=== PATIENT | female | born 1945 | race Caucasian/White ===

== ENCOUNTER 2017-03-30 07:54 | Inpatient (IN) | payer MEDICARE ==
[2017-03-30] MEDS ORDERED: KETOROLAC 60 MG/2 ML VIAL IVP STA (09:05)
[2017-03-30] MEDS ORDERED: ONDANSETRON 4 MG/2 ML VIAL IVP STA (09:05)
[2017-03-30] MEDS ORDERED: SODIUM CHLORIDE 0.9% 1,000 ML IV ONE (09:05)
[2017-03-30] MEDS ORDERED: KETOROLAC 30 MG/ML VIAL ONE (09:14)
[2017-03-30] MEDS ORDERED: ONDANSETRON 4 MG/2 ML VIAL ONE (09:14)
[2017-03-30] MEDS ORDERED: SODIUM CHLORIDE FLUSH 0.9% 10 ML SYRINGE IVP ONE ×2 (09:14→14:20)
--- NOTE | 2017-03-30 09:14 | ED Physician Documentation ---
PD HPI ABD PAIN - Stated complaint Stated Complaint: ABD PX - Chief complaint Chief Complaint: Abd Pain - History obtained from History obtained from: Patient, Family - History of Present Illness Timing - onset: How many days ago (4) Timing - duration: Days (4) Timing - details: Abrupt onset, Still present Quality: Sharp, Pain Location: LLQ Radiation: Left flank Improved by: Other (nothing) Worsened by: Other (nothing) Associated symptoms: Nausea, Vomiting Similar symptoms before: Has not had sx before Recently seen: Not recently seen - Additional information Additional information: 71-year-old female developed some pain in the left lower quadrant which radiates into her left flank about 4 days ago she has had undulation of the pain and this morning the pain is intolerable. She is vomiting. She has known diverticula but no prior diverticulitis. She has had appendix and tonsils out and no other operations. She had a pelvic ultrasound done a [facility] last year in [place]. She had fibroid uterus then. Review of Systems Constitutional: denies: Fever, Chills, Myalgias, Fatigue Nose: denies: Congestion Throat: denies: Sore throat Respiratory: denies: Cough GI: reports: Abdominal Pain, Nausea, Vomiting. denies: Constipation, Diarrhea : reports: Frequency. denies: Dysuria Skin: denies: Rash Musculoskeletal: reports: Back pain. denies: Neck pain, Extremity pain PD PAST MEDICAL HISTORY - Past Medical History Past Medical History: Yes Cardiovascular: Hypertension GI: Other Other Past Medical History: diverticulosis - Past Surgical History General: Appendectomy HEENT: Tonsil/Adenoidectomy - Present Medications Home Medications: Ambulatory Orders Medication Instructions Recorded Confirmed Hydrochlorothiazide 25 mg PO DAILY 03/30/17 03/31/17 Losartan [Cozaar] 25 mg PO DAILY 03/30/17 03/31/17 Naproxen Sodium 220 mg PO BID PRN 03/30/17 03/30/17 - Allergies Allergies/Adverse Reactions: Allergies Allergy/AdvReac Type Severity Reaction Status Date / Time ciprofloxacin [From Cipro] Allergy Unknown Verified 03/30/17 08:13 ciprofloxacin HCl * Allergy Unknown Verified 03/30/17 08:13 [From Cipro] eucalyptus Allergy Rash Verified 03/30/17 08:13 iodine Allergy Unknown Verified 03/30/17 08:13 menthol Allergy Rash Verified 03/30/17 08:13 lisinopril AdvReac Anxiety Verified 03/31/17 11:31 - Social History Does the pt smoke?: No Smoking Status: Never smoker Does the pt drink ETOH?: Yes ETOH Use: Wine Does the pt have substance abuse?: No PD ED PE NORMAL - Vitals Vital signs reviewed: Yes (hypertensive ) - General General: Well developed/nourished, Other (71-year-old female who appears uncomfortable with increased cranial nerves III tone.) - HEENT HEENT: Atraumatic, PERRL - Neck Neck: Supple, no meningeal sign, No bony TTP - Cardiac Cardiac: RRR, No murmur - Respiratory Respiratory: No respiratory distress, Clear bilaterally - Abdomen Abdomen: Normal bowel sounds, Soft, Non tender, Non distended, No organomegaly - Back Back: No CVA TTP, No spinal TTP - Derm Derm: Normal color, Warm and dry, No rash - Extremities Extremities: No deformity, No edema - Neuro Neuro: No motor deficit, No sensory deficit - Psych Psych: Normal mood, Normal affect Results - Vitals Vitals: Vital Signs - 24 hr 03/30/17 03/30/17 17:42 18:30 Heart Rate 88 78 Respiratory 16 16 Rate Blood Pressure 156/72 H 150/82 H Oxygen O2 Source Room air - Labs Labs: Laboratory Tests 03/30/17 03/30/17 03/30/17 08:51 08:51 08:51 WBC 7.6 RBC 4.69 Hgb 14.2 Hct 41.3 MCV 88.2 MCH 30.2 MCHC 34.3 RDW 13.9 Plt Count 272 MPV 6.9 L Neut # 6.8 H Lymph # 0.5 L Antelope # 0.3 Eos # 0.0 Baso # 0.0 Absolute Nucleated RBC 0.01 Nucleated RBCs 0.1 Sodium 135 Potassium 2.8 L Chloride 96 L Carbon Dioxide 28 Anion Gap 11.0 BUN 13 Creatinine 0.7 Estimated GFR (MDRD) 82 L Glucose 136 H Calcium 9.2 Total Bilirubin 0.7 AST 22 ALT 18 Alkaline Phosphatase 51 Troponin I < 0.04 Total Protein 7.1 Albumin 4.5 Globulin 2.6 Albumin/Globulin Ratio 1.7 Lipase 29 Urine Color Urine Clarity Urine pH Ur Specific Tilly Urine Protein Urine Glucose (UA) Urine Ketones Urine Occult Blood Urine Nitrite Urine Bilirubin Urine Urobilinogen Ur Leukocyte Esterase Ur Microscopic Review Urine Culture Comments 03/30/17 09:45 WBC RBC Hgb Hct MCV MCH MCHC RDW Plt Count MPV Neut # Lymph # Antelope # Eos # Baso # Absolute Nucleated RBC Nucleated RBCs Sodium Potassium Chloride Carbon Dioxide Anion Gap BUN Creatinine Estimated GFR (MDRD) Glucose Calcium Total Bilirubin AST ALT Alkaline Phosphatase Troponin I Total Protein Albumin Globulin Albumin/Globulin Ratio Lipase Urine Color YELLOW Urine Clarity CLEAR Urine pH 7.0 Ur Specific Tilly 1.015 Urine Protein NEGATIVE Urine Glucose (UA) NEGATIVE Urine Ketones 15 H Urine Occult Blood TRACE-INTA Urine Nitrite NEGATIVE Urine Bilirubin NEGATIVE Urine Urobilinogen 0.2 (NORMAL) Ur Leukocyte Esterase NEGATIVE Ur Microscopic Review NOT INDICATED Urine Culture Comments NOT INDICATED - Rads (name of study) CT abdomen and pelvis without Radiology: Prelim report reviewed (Impression: No urinary tract stones or obstruction. 10 cm cystic lesion abutting proximal descending colon. Question enteric duplication cyst. Lympho-angioma, cystic mesothelioma and sarcoma are not excluded. Recommend surgical consult. Diverticulosis without evidence of diverticulitis. Enlarged fibroid uterus. Largest fibroid measuring 12 cm in size.), EMP read indepedently, See rad report Procedures - Bedside sono Bedside sono by EMP: With use of bedside ultrasound the left kidney is imaged it is sonographically nontender and there is minimal hydronephrosis. - IVC sono (time) 0914 Bedside IVC sono: IVC measures (cm) (1.08), Dehydration PD MEDICAL DECISION MAKING - ED course Complexity details: reviewed results, re-evaluated patient, considered differential, d/w patient, d/w family ED course: 71-year-old female with acute left lower quadrant abdominal pain does not have much change her pain with palpation or movement. Her description of pain is consistent with renal lithiasis. Ultrasound of the kidney on the left side of the bedside demonstrates no evidence of sonographic tenderness there is minimal evidence of hydronephrosis. CT scan of the area demonstrates a 10 cm cystic lesion abutting the colon. This does appear to be the most consistent structure to account for the patient's pain. She has improvement in her pain with use of Dilaudid and not with the use of Toradol. The surgeon is consulted in the case. Departure - Departure Disposition: [facility] DC/Xfer Clinical Impression: Enteric duplication cyst Abdominal pain Qualifiers: Abdominal location: left lower quadrant Qualified Code(s): R10.32 - Left lower quadrant pain Fibroid uterus Qualifiers: Uterine leiomyoma location: unspecified location Qualified Code(s): D25.9 - Leiomyoma of uterus, unspecified Condition: Stable Discharge Date/Time: 03/30/17 20:01
[2017-03-30 09:33] LABS: BASOPHILS % (AUTO) 0.3 %; HCT - HEMATOCRIT 41.3 % (37.0-47.0); HGB - HEMOGLOBIN 14.2 g/dL (12.0-16.0); LYMPHOCYTES # (AUTO) 0.5 10^3/uL (1.5-3.5); LYMPHOCYTES % (AUTO) 6.5 %; MEAN CORPUSCULAR HEMOGLOBIN 30.2 pg (27.0-31.0); MEAN CORPUSCULAR HGB CONC 34.3 g/dL (32.0-36.0); MEAN CORPUSCULAR VOLUME 88.2 fL (81.0-99.0); MEAN PLATELET VOLUME 6.9 fL (7.9-10.8); MONOCYTES # (AUTO) 0.3 10^3/uL (0.0-1.0); MONOCYTES % (AUTO) 3.5 %; NEUTROPHILS # (AUTO) 6.8 10^3/uL (1.5-6.6); NEUTROPHILS % (AUTO) 89.7 %; NUCLEATED RED BLOOD CELLS AUTO 0.1 /100WBC; RED BLOOD COUNT 4.69 10^6/uL (4.20-5.40); RED CELL DISTRIBUTION WIDTH 13.9 % (12.0-15.0); UNCORRECTED WHITE BLOOD COUNT 7.6 x10^3/uL; WHITE BLOOD COUNT 7.6 x10^3/uL (4.8-10.8)
[2017-03-30] MEDS ORDERED: HYDROmorphone 1 MG/ML CARPUJECT IVP STA ×2 (09:42→14:14)
[2017-03-30 09:50] LABS: ALBUMIN/GLOBULIN RATIO 1.7 (1.0-2.2); BILIRUBIN,TOTAL 0.7 mg/dL (0.2-1.0); CALCIUM 9.2 mg/dL (8.5-10.3); CREATININE 0.7 mg/dL (0.4-1.0); POTASSIUM 2.8 mmol/L (3.5-5.0); TOTAL PROTEIN 7.1 g/dL (6.7-8.2)
[2017-03-30] MEDS ORDERED: HYDROmorphone 1 MG/ML CARPUJECT ONE ×2 (09:51→14:20)
[2017-03-30] MEDS ORDERED: POTASSIUM BICARB 25 MEQ TABLET PO STA (10:08)
[2017-03-30] MEDS ORDERED: POTASSIUM BICARB 25 MEQ TABLET PO ONE (10:19)
[2017-03-30 11:23] LABS: BILIRUBIN,URINE NEGATIVE (NEGATIVE)
[2017-03-30 11:28] LABS: UA CHARGE (STRIP ONLY) YES; UR CULTURE IF IND NOT INDICATED
--- NOTE | 2017-03-30 12:25 | CT Preliminary Report ---
Exam: CT Abdomen/Pelvis W/O IMPRESSION: No urinary tract stones or obstruction. 10 cm cystic lesion abutting proximal descending colon. Question enteric duplication cyst. Lymphangio ma, cystic mesothelioma and sarcoma are not excluded. Recommend surgical consult. Diverticulosis without evidence for diverticulitis. Enlarged fibroid uterus. Largest fibroid measuring 12 cm in size. [facility] SITE ID: [id number]
--- NOTE | 2017-03-30 13:01 | CT Report ---
EXAM: CT ABDOMEN AND PELVIS (CT KUB) EXAM DATE: 03/30/2017 10:13 AM. CLINICAL HISTORY: Left flank pain. COMPARISONS: None. TECHNIQUE: Routine axial helical CT imaging was performed through the abdomen and pelvis without IV c ontrast. Reconstructions: Coronal and sagittal. In accordance with CT protocol optimization, one or more of the following dose reduction techniques w ere utilized for this exam: automated exposure control, adjustment of mA and/or KV based on patient s ize, or use of iterative reconstructive technique. FINDINGS: Lung Bases: Probable right lower parapelvic cyst. No hydronephrosis or stone. Right Kidney/Ureter: No stones, hydronephrosis, or hydroureter. No perinephric fat stranding. Left Kidney/Ureter: Probable left lower cortical and parapelvic renal cysts. No hydronephrosis or per inephric edema. Other Solid Organs: Mild bilateral adrenal gland thickening, probable hyperplasia. Medial left adrena l limb has attenuation 6HU, compatible with adenoma. Spleen is not enlarged. Liver is unremarkable in noncontrast imaging. Gallbladder/Bile Ducts: Unremarkable. Peritoneal Cavity: Small fat-containing umbilical hernia. Diverticulosis without focal inflammation. No dilated bowel. There is a prominent thin-walled simple-appearing cystic lesion abutting the proximal sigmoid colon. Lesion measures 10 x 5.6 x 7.8 cm, 233 mL and has water density. Cystic lesion contains a tiny station air traffic control specialist ior calcification. Pelvic Organs: Uterus is enlarged by densely calcified fibroids. A fundal fibroid measures 12.3 cm in size. Bladder is only partially distended and appears grossly unremarkable. Vasculature: Unremarkable. Other: Lower lumbar spine degenerative changes. Effacement of ventral thecal sac at the L3-L4 and L4- L5 levels due to broad-based disk bulges. IMPRESSION: 1. No urinary tract stones or obstruction. 2. A Large, 10 cm cystic lesion abutting proximal descending colon. Question enteric duplication cyst . Lymphangioma, cystic mesothelioma, and sarcoma are not excluded. Recommend surgical consult. 3. Diverticulosis without evidence for diverticulitis. 4. Enlarged fibroid uterus. Largest fibroid measuring approximately 12 cm in size. [facility] Referring Provider Line: [phone] SITE ID: [id number]
[2017-03-30] MEDS ORDERED: ACETAMINOPHEN 325 MG TABLET PO PRN (19:17)
[2017-03-30] MEDS ORDERED: SODIUM CHLORIDE FLUSH 0.9% 10 ML SYRINGE IVP PRN (19:17)
[2017-03-30] MEDS ORDERED: ONDANSETRON 4 MG/2 ML VIAL IVP PRN (19:17)
[2017-03-30] MEDS ORDERED: ZOLPIDEM 5 MG TABLET PO PRN (19:17)
[2017-03-30] MEDS: HYDROmorphone 1 MG/ML CARPUJECT IVP PRN (20:48)
[2017-03-30] MEDS: D5.45NS W/20 MEQ KCL 1,000 ML IV SCH (20:50)
[2017-03-30] MEDS: SODIUM CHLORIDE FLUSH 0.9% 10 ML SYRINGE IVP SCH (22:13)
[2017-03-30] MEDS: DOCUSATE SODIUM 100 MG CAPSULE PO SCH (22:32)
[2017-03-31] MEDS: D5.45NS W/20 MEQ KCL 1,000 ML IV SCH (00:51)
--- NOTE | 2017-03-31 04:45 | CONSULTATION NOTE ---
DATE OF CONSULTATION: 03/30/2017 00:00:00 IDENTIFICATION: A 71-year-old G4, P3-0-1-3. HISTORY OF PRESENT ILLNESS: I was contacted by Dr. Sarthak Anaya to see the patient. She had presented to [facility] with complaints of left flank pain. Per Dr. Christie's report, she had left lower quadrant pain with radiation to her left flank that began about 4 days ago. However, this pain has severely worsened and she describes this pain as worse than having her child who was delivered breech. She is in so much pain that she is vomiting. She denies any fevers or chills. A 10 cyst adjacent to the sigmoid was seen and attributed to her pain. Dr. Anaya consulted me given an incidental finding of an enlarged leiomyomatous uterus. The patient states that she was told in the distant past that she had a fibroid uterus, but it would shrink so that she would not have to worry about it in the future. PAST MEDICAL HISTORY 1. Hypertension. 2. Diverticulosis. PAST SURGICAL HISTORY 1. Appendectomy at age 10. 2. Tonsillectomy at age 32. 3. Immediate tubal sterilization with the last child. ALLERGIES 1. CIPROFLOXACIN, WHICH SHE HAS TENDINITIS. 2. EUCALYPTUS. 3. LISINOPRIL. 4. IODINE. MEDICATIONS 1. Losartan 50 mg 1 tab p.o. daily. 2. Hydrochlorothiazide 25 mg 1 tab p.o. daily. SOCIAL HISTORY: She denies any tobacco or illicit drug use. She does have occasional wine at night. The patient is originally from [place] [place] where she worked as a [employer]. 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 Her is [place] and his name is Vic. The patient states that her 3 children are doing quite well. PAST OBSTETRICAL HISTORY: Three term vaginal deliveries with one being breech, one miscarriage. PAST GYNECOLOGIC HISTORY: She states that she has had normal Pap smears and denies any history of colposcopy, LEEP, cold knife cone or cryotherapy. Since she has gone through menopause, she denies any postmenopausal bleeding. She was able to show me on her cell phone her most recent pap smear from [facility]. 04/2001 pap smear was negative. FAMILY HISTORY: She denies any history of female cancer, specifically for breast , ovaries or uterus. REVIEW OF SYSTEMS: Negative unless otherwise stated. OBJECTIVE VITAL SIGNS: Temperature is 97.5, blood pressure 156/72. GENERAL: The patient is a well-developed, well-nourished [place] female in no apparent distress. She is alert and oriented x3. She is very pleasant and intelligent and easy to speak to. She does have a slight [place] accent. HEENT: Within normal limits. ABDOMEN: Soft. No peritoneal signs. Fundal height measures approximately 18 weeks' equivocal gestational age. LABORATORY DATA: White count of 7.6, hemoglobin 14.2, hematocrit 41.3, platelets 272. Sodium 135, potassium 2.8, chloride 96, BUN 13, creatinine 0.7, glucose 136, AST 22, AST 18. Urinalysis indicates that she has ketonuria. CT of the abdomen and pelvis revealed a small fat containing umbilical hernia, diverticulosis without focal inflammation, no dilated bowel. There is a prominent thin-walled simple appearing cystic lesion abutting the proximal sigmoid colon. The lesion measures 10 x 5.6 x 7.8 cm, 233 mL, and has water density. Cystic lesion contains a tiny posterior calcification. Pelvic organs, uterus has enlarged densely calcified fibroids. Fundal fibroid measures 12.3 cm in size. The bladder is only partially distended and appears grossly unremarkable. When I looked at the CT report, the largest dimensions were approximately 13 x 10 x 13 cm, the entirety of the uterus. ASSESSMENT 1. A 71-year-old G4, P3-0-1-3. 2. Leiomyomatous uterus. 3. Left abdominal pain with radiation to the left flank. PLAN: I have spoken to Dr. Anaya who would like to do surgery on the patient. I am in agreement that it is in her best interest that we proceed to a total abdominal hysterectomy with bilateral salpingo-oophorectomy. She eventually will need a hysterectomy since it is causing a mass affect by making voiding difficult. Also, I worry that the fibroids will start to necrose causing further pain. Finally by proceeding to a hysterectomy, excision of her parasigmoid cyst will be much easier. I discussed with the patient the risks, benefits, alternatives, indications and expectations of surgery. Included in this discussion, but not limited to the risks of infection, hemorrhage, and damage to surrounding organs. With respect to surrounding organs, this may be an inadvertent laceration, cauterization or ligation of adjacent ureters, bladder or bowel. Furthermore, with the surgery, she will not be able to have any children in the future. All of the patient's questions were answered to her satisfaction and she verbalized her desire to proceed with surgery. I have explained to her that given the dimensions of her uterus, that we would proceed with a low vertical incision. The patient's questions were answered to her satisfaction. She verbalized her desire to proceed with surgery. I will consent the patient for a total abdominal hysterectomy and bilateral salpingo- oophorectomy. JOB #: [id number] EXT JOB #:[id number] ARON
[2017-03-31] MEDS: POLYETHYLENE GLYCOL 3350 17 GM PACKET PO SCH (07:47)
[2017-03-31] MEDS: SODIUM CHLORIDE FLUSH 0.9% 10 ML SYRINGE IVP SCH ×3 (07:47→23:29)
[2017-03-31] MEDS: HYDROmorphone 1 MG/ML CARPUJECT IVP PRN ×3 (08:05→15:55)
--- NOTE | 2017-03-31 09:01 | PROVIDER PROGRESS NOTE ---
Subjective - Prog Note Date Prog Note Date: 03/31/17 Prog Note Time: 08:59 - Subjective Pt reports feeling: Improved Subjective: Patient lying in bed, closing her eyes. Trying to get sleep. States staff has kept her pain at a constant controlled level. Was able to sleep last night. Frustrated that she hadn't gotten her fibroid taken care of 20 years ago. OK with surgery about 12:00 since it gives Vic time to arrange things before he comes to the hospital. Objective - Vital Signs/Intake & Output Reviewed Vital Signs: Yes Vital Signs: Vital Signs x48h Temp Pulse Resp BP Pulse Ox 03/31/17 08:13 98.0 F 76 16 129/68 95 - Objective General Appearance: positive: No acute distress Neurologic/Psychiatric: positive: Oriented x3 - Lab Results Fish Bones: 03/30/17 08:51 03/30/17 08:51 Assessment/Plan - Problem List (1) Fibroid uterus Impression: 71 yo with a 18 week equivocal gestational age leiomyomatamous uterus Abdominal pain Plan to proceed to SAGAR/BSO this PM. Dr. Anaya likely to remove intestinal cyst with repair of umbilical hernia Qualifiers: Uterine leiomyoma location: unspecified location Qualified Code(s): D25.9 - Leiomyoma of uterus, unspecified
[2017-03-31] MEDS: DOCUSATE SODIUM 100 MG CAPSULE PO SCH ×2 (09:27→23:28)
[2017-03-31] MEDS: hydroCHLOROthiazide 25 MG TABLET PO SCH (11:04)
[2017-03-31] MEDS: LOSARTAN 50 MG TABLET PO SCH (11:04)
[2017-03-31] MEDS ORDERED: ceFAZolin 2 GM/50 ML 50 ML IV SCH (12:00)
[2017-03-31] MEDS ORDERED: ceFAZolin 2 GM/50 ML 2 GM/50 ML BAG IV ONE (12:29)
[2017-03-31 12:55] LABS: CALCIUM 8.7 mg/dL (8.5-10.3); CREATININE 0.6 mg/dL (0.4-1.0); POTASSIUM 3.1 mmol/L (3.5-5.0)
[2017-03-31] MEDS ORDERED: POTASSIUM CHLOR 10 MEQ/100 ML 10 MEQ/100 ML BAG IV ONE (14:26)
[2017-03-31] MEDS ORDERED: fent/BUPIV 2 MCG/0.125% 250 ML EP ONE (15:08)
[2017-03-31] MEDS ORDERED: LACTATED RINGERS 1,000 ML IV ONE ×3 (17:25→20:05)
[2017-03-31] MEDS ORDERED: ceFAZolin 1 GM VIAL IV ONE (18:17)
[2017-03-31] MEDS ORDERED: MIDAZOLAM 2 MG/2 ML VIAL IVP ONE (18:17)
[2017-03-31] MEDS ORDERED: fentaNYL 100 MCG/2 ML VIAL IVP ONE (18:17)
[2017-03-31] MEDS ORDERED: LIDOCAINE-MPF 2% 5 ML VIAL IM ONE (18:17)
[2017-03-31] MEDS ORDERED: ACETAMINOPHEN 1,000 MG/100 ML 100 ML IV ONE (18:17)
[2017-03-31] MEDS ORDERED: GLYCOPYRROLATE 1 MG/5 ML VIAL IVP ONE (18:17)
[2017-03-31] MEDS ORDERED: ONDANSETRON 4 MG/2 ML VIAL IVP ONE (18:17)
[2017-03-31] MEDS ORDERED: ROCURONIUM 50 MG/5 ML VIAL IVP ONE (18:17)
[2017-03-31] MEDS ORDERED: NEOSTIGMINE 1 MG/1 ML 10 ML MDV IVP ONE (18:17)
[2017-03-31] MEDS ORDERED: DEXAMETHASONE 4 MG/ML VIAL IVP ONE (18:17)
[2017-03-31] MEDS ORDERED: PROPOFOL 200 MG/20 ML VIAL IVP ONE (18:17)
[2017-03-31] MEDS ORDERED: ePHEDrine 50 MG/ML VIAL IVP ONE (18:17)
[2017-03-31] MEDS ORDERED: BUPIVACAINE 0.25% PF 30 ML VIAL SUBQ ONE (18:17)
[2017-03-31] MEDS ORDERED: ONDANSETRON 4 MG/2 ML VIAL IVP PRN (19:59)
[2017-03-31] MEDS ORDERED: fent/BUPIV 2 MCG/0.125% 250 ML EP PRN (19:59)
[2017-03-31] MEDS ORDERED: diphenhydrAMINE INJ 50 MG/ML VIAL IVP PRN (19:59)
[2017-03-31] MEDS ORDERED: NALBUPHINE 20 MG/ML AMP IVP PRN (19:59)
--- NOTE | 2017-03-31 20:09 | OPERATIVE REPORT ---
Operative Report - General Admit Date: 03/30/17 - Other Other Information/Narrative: Date of Operation: 03/31/2017 Surgeon: Romy OSUNAOG Review Nurse: Sarthak Anaya MD [facility] Facilities Maintenance Engineer: Diana Martinez CRNA Anesthesia: 1. Epidural 2. GET Pre-op Dx: 1. 71 yo 2. Leiomyomatamous uterus 3. Intestinal cyst causing abdominal pain 4. Umbilical hernia Post-op Dx: 1. 71 yo 2. Leiomyomatamous uterus 3. Torsed left adnexa causing abdominal pain 4. Incisional hernia Procedure: 1. Exploratory laparotomy 2. Total abdominal hysterectomy 3. Bilateral salpingo-oophorectomy 4. Incisional herniorraphy (by Dr. Anaya) Findings: 1. Leiomyomatamous uterus 2. Enlarged, hemorrhagic, torsed left adnexa with 2 revolutions 3. Normal right adnexa 4. Incisional hernia Specimens: 1. Pelvic washings 2. Uterus 3. Bilateral adnexae Drains: 1. Adams catheter to gravity 2. Prevena wound vac EBL: 100 mL Complications: None Dictation #: [id number]
[2017-03-31] MEDS ORDERED: SIMETHICONE CHEW 80 MG TABLET PO SCH ×2 (22:00)
[2017-03-31] MEDS: ACETAMINOPHEN 500 MG TABLET PO SCH (23:28)
[2017-03-31] MEDS: CELECOXIB 100 MG CAPSULE PO SCH (23:28)
[2017-03-31] MEDS: LACTATED RINGERS 1,000 ML IV SCH (23:29)
[2017-03-31] MEDS: oxyCODONE 5 MG TABLET PO SCH (23:29)
[2017-03-31] MEDS ORDERED: PHENOL THROAT SPRAY 177 ML MM PRN (23:33)
--- NOTE | 2017-03-31 23:56 | OPERATIVE REPORT ---
Operative Report - General Admit Date: 03/30/17 Procedure Date: 03/31/17 Planned Procedure: Exploratory laparotomy, possible cystectomy, possible bowel resection Pre-Op Diagnosis: Large LEFT cystic abdominal structure causing pain, incisional hernia Procedure Performed: Incisional herniorrhaphy Post Op Diagnosis: LEFT ovarian torsion, LARGE fibroid uterus, incisional hernia - Procedure Note Primary Surgeon: Sarthak Anaya MD Secondary Surgeon: Romy Rosen DO Anesthesia Provider: Diana Martinez Anesthesia Technique: General ET tube IV Fluids (mL): 1,900 Estimated Blood Loss (mL): 100 Urine Output (mL): 150 Complications: None. - Other Other Information/Narrative: OPERATIVE DESCRIPTION/REPORT: After verbal and written informed consent was obtained detailing the risks of infection, bleeding requiring transfusion with its risks, and , as well as the possibility of a colostomy, and after I met with the patient confirming the surgery, the patient was brought to the operative suite and placed supine on the operating table. Great care was taken to avoid pressure points to prevent pressure necrosis or nerve injury. Monitoring devices were applied along with TEDs and pneumatic compressive stockings (to prevent DVT). The patient received preoperative antibiotics for surgical prophylaxis. Diana Martinez sedated and anethetized the patient for the entire procedure. The patient was prepped and draped in the usual sterile manner. A "time in" then confirmed that the paitient was identified with 3 identifiers (name, birthdate and medical record number), the history and physical was in the chart, the signed consent confirming the procedure was in the chart, the patient was in the correct position, the aforementioned prophylactic measures were in place or given, we had the correct personnel and equipment to complete the procedure and that anesthesia, surgery and nursing were given an opportunity to express any concerns. With the agreement of everyone in the room, we proceeded with the operation. A midline incision was made infraumbilically and taken down to the fascia. The incision extended from the umbilicus to above the pubic tubercle. Once this was taken down to the fascia, the fascia and peritoneum were opened without incident or difficulty. The incisional hernia was opened during the entry into the abdomen. Examination of the abdomen revealed that the cystic mass seen on CT scan was a LEFT ovarian torsion. Additionally, we confirmed that the large fibroid uterus was in fact a very large fibroid uterus. At this point, Dr. Rosen took the lead in the operation and performed the bilateral salpingo- oophorectomy and hysterectomy. This has been or will be reported separately by her. For this portion of the operation I was the executive sales assistant. Once this was completed I examined the abdomen for any other pathology and noted that the sigmoid colon was markedly redundant. Additionally the stomach, liver and gallbladder were all palpably normal. The spleen was normal. No pathology was noted in the large or small bowel although we did not run the bowel. Satisfied that there was no other pathology to be found and confirming that there was no bleeding from the resection performed by Dr. Rosen I closed the fascia using a 0 looped PDS in a running fashion. The fascial closure was started superiorly and inferiorly and run to meet in the middle. In so doing I repaired the incisional hernia. The subcutaneous tissues were copiously irrigated using warm sterile saline and meticulous hemostasis was obtained using Bovie electrocautery. The skin was approximated by Dr. Rosen. At this point a time out was performed that confirmed that all the counts were correct, the procedure that was performed, the blood loss, the urine output, the IV fluids administered, and the patients condition. A dressing was placed on the wound. Having tolerated the procedure well, the patient was subsequently extubated and taken to recovery room in good and stable condition.
[2017-04-01] MEDS: oxyCODONE 5 MG TABLET PO SCH ×3 (00:24→10:40)
--- NOTE | 2017-04-01 01:37 | CONSULTATION NOTE ---
DATE OF CONSULTATION: 04/01/2017 00:00:00 REQUESTING PROVIDER: HISTORY OF PRESENT ILLNESS: I am called in consultation to evaluate this exceedingly pleasant harris [age]-year-old female for abrupt onset of left-sided abdominal pain associated with some nausea and vomit ing. As already stated this pleasant 71-year-old female had the abrupt onset of left mid to upper quadrant abdominal pain radiating through to her flank, which was associated with some nausea and vomiting. I t worsened over the past 4 days to the point where the pain was intolerable and she had come into the emergency department. Notably, she has had known colonic diverticulosis but no diverticulitis. She h as had her appendix removed. She is known to have a large fibroid uterus. She denies any other sympto ms with this. PAST MEDICAL AND SURGICAL HISTORY: 1. Hypertension. 2. Sigmoid diverticulosis. 3. Appendectomy. 4. Tonsil and adenoidectomy. MEDICATIONS: 1. Hydrochlorothiazide 25 mg p.o. daily. 2. Cozaar 25 mg p.o. daily. 3. Naproxen sodium 220 mg p.o. b.i.d. as needed. ALLERGIES: 1. CIPROFLOXACIN. 2. EUCALYPTUS. 3. IODINE. 4. MENTHOL. 5. LISINOPRIL. SOCIAL HISTORY: Tobacco never. Occasional wine. Recreational drugs: None. FAMILY HISTORY: Family history is not reviewed as it is not pertinent for this disease process. REVIEW OF SYSTEMS: GENERAL: She has had no weight loss, fever or chills. HEENT: She denies any change in her vision or hearing. NECK: She denies any difficulty swallowing or speaking. CARDIAC: She denies chest pain or pressure. RESPIRATORY: She denies shortness of breath or productive cough. GASTROINTESTINAL: See above. GENITOURINARY: She denies dysuria. MUSCULOSKELETAL: She does have some generalized aches and pains, but nothing that keeps her from doin g what she wishes to do. PHYSICAL EXAMINATION: GENERAL: This is a 71-year-old female who appears her stated age. She is well-developed and well-nourished and is in no acute distress. She is alert and oriented to person, place and time. His mood and affect are appropriate. She is evaluated in room 8 at [facility] Emergency Department. VITAL SIGNS: Please refer to nurse's note. HEENT: She is normocephalic, atraumatic. Sclerae are noninjected, nonicteric. Her mucous membranes ar e pink and moist. NECK: Her neck is supple without mass or bruits. HEART: Her heart is regular rate and rhythm without rub, murmur, or gallop. LUNGS: Her lungs are clear to auscultation bilaterally. ABDOMEN: She has normal bowel sounds. She is tender in the left upper quadrant, but I am unable to pa lpate a mass. She has no peritoneal findings. The uterus itself is clearly palpable. This was noted i n the lower pelvis. RECTAL: Deferred. GENITOURINARY: Deferred. EXTREMITIES: Show no clubbing, cyanosis, or edema. GAIT: Gait was not evaluated. PSYCHIATRIC: She is alert and oriented to person, place and time. Her mood and affect appear appropri ate. She asks questions easily and well. Abnormalities on her chemistry include a potassium of 2.8, chloride of 96, GFR of 82, glucose of 136. Abnormalities on her urinalysis include urine ketones of 15. Abnormalities on her CBC included an MP V of 6.9, neutrophils 6.8, and lymphocytes 0.5. The abdominopelvic CT read by Dr. Bobo Rhodes, the impression is no urinary tract stones or obstruct ion, a large 10 cm cystic lesion abutting the proximal descending colon, question enteric duplication cyst, lymphangioma, cystic mesothelioma and sarcoma not excluded. Recommend surgical consult. Divert iculosis without evidence of diverticulitis. Enlarged fibroid uterus, largest fibroid measuring appro ximately 12 cm in size. ASSESSMENT: A 71-year-old female with abnormal CT scan leading to abdominal pain and nausea, and vomi ting. PLAN: Exploratory laparotomy with possible cystectomy or possible bowel resection. The indications, p rocedure, alternatives and possible complications including but not limited to infection, bleeding wi th all its risks including transfusion, and were fully explained to the patient and all questio ns were answered. Verbal and written consent was obtained. The patient will receive preoperative anti biotics for prophylaxis against surgical infection. The patient has been instructed to let us know if there is any way we can make her stay here at [facility] more comfortable, to ple ase let us know. All in all approximately 30 minutes of [id number] time was spent with the patient. JOB #: [id number] EXT JOB #:[id number]
--- NOTE | 2017-04-01 03:45 | OPERATIVE REPORT ---
DATE OF SURGERY: 03/31/2017 00:00:00 SURGEON: Romy Rosen DO, FACOG. WAX CUTTER: Sarthak Anaya MD, FACS. BOILERMAKER: Diana Martinez CRNA. ANESTHESIA 1. Epidural. 2. General endotracheal tube. PREOPERATIVE DIAGNOSES 1. A 71-year-old G4, P3-0-1-3. 2. Leiomyomatous uterus. 3. Intestinal cyst. 4. Umbilical hernia. POSTOPERATIVE DIAGNOSES 1. A 71-year-old G4, P3-0-1-3. 2. Leiomyomatous uterus. 3. Torsed left adnexa causing abdominal pain. 4. Incisional hernia. PROCEDURES 1. Exploratory laparotomy. 2. Total abdominal hysterectomy. 3. Bilateral salpingo-oophorectomy. 4. Incisional herniorrhaphy by Dr. Anaya. FINDINGS 1. Leiomyomatous uterus. 2. Large hemorrhagic torsed left adnexa with 2 revolutions. 3. Normal right adnexa. 4. Incisional hernia. SPECIMENS 1. Pelvic washings. 2. Uterus. 3. Bilateral adnexa. DRAINS 1. Adams catheter to gravity. 2. Prevena wound VAC. ESTIMATED BLOOD LOSS: 100 mL. COMPLICATIONS: None. BRIEF HISTORY: The patient presented to [facility] Emergency Department on 03/30/2017. Unfortunately, the patient had been experiencing severe abdominal pain. She was seen initially by Dr. Anaya. The patient's workup was significant for an approximately 10 cm parasigmoid cyst that was fluid filled. Her pain was attributed to this cyst. An incidental finding of a leiomyomatous uterus was also noted, so I was consulted. Given the clinical findings, I recommended to the patient to at least undergo a total abdominal hysterectomy with bilateral salpingo-oophorectomy because if she was to have major surgery, specifically to remove the large parasigmoid cyst, it would benefit her to undergo only one operation in order to remove her female reproductive system. She has been noting that she is having a difficult time emptying her bladder in the recent past. Also, I was concerned that the fibroid maybe degenerating, worsening her abdominal pain. I discussed with the patient the risks, benefits, alternatives, indications and expectations of an exploratory laparotomy and bilateral salpingo-oophorectomy. Included in our discussion were the risk of hemorrhage, infection, and damage to surrounding organs. With respect to damage to surrounding organs, this may include, but is not limited to inadvertant laceration, cauterization, ligation of adjacent intestines, ureters or bladder. After the patient's questions were answered to her satisfaction, she verbalized her desire to proceed with surgery. Consent forms have been signed. OPERATION IN DETAIL: The patient was identified, consented, and taken to the operating room, where she was given satisfactory epidural anesthesia as per Diana Martinez. She was then given sequential compression devices on her lower extremities and turned on. Mrs. Palacios was then given satisfactory general endotracheal tube anesthesia. She was then prepped and draped in the normal sterile fashion in the supine position. A Adams catheter was placed in her bladder and a grounding pad placed on top of her thigh. Two grams of Ancef IV were given to the patient for postoperative cellulitis prophylaxis. A time-out was performed, which correctly identified the patient, site of the procedure, and the procedures themselves. A low vertical midline incision was then performed. The incision was carried through the underlying layer of fascia with electrocautery. The fascia was then nicked in the midline and then extended superiorly and inferiorly. The peritoneum was then entered sharply. Pelvic washings were obtained. The abdomen and pelvis were then explored. The left adnexa was obviously torsed with 2 revolutions. It was congested, purple in color, and measuring approximately the size of a softball. No other abnormalities in the abdomen were noted. Her intestines appeared normal and the parasigmoid cyst that was seen on the CT was likely the torsed left adnexa. Further examination of the pelvis revealed a leiomyomatous uterus. The right adnexa was within normal limits. An O'[place]vin[place] abdominal retractor was placed in the abdomen and the intestines packed away. First, the left adnexa was detorsed. The fallopian tube , true ligament of the ovary, and the round ligament were then grasped and then clamped, cut, and cauterized with the LigaSure. The specimen was then passed off the table. The uterus, fallopian tubes, and ovaries, and fibroid were all sent off in one container at the termination of the case. Next, I attempted to mobilize the uterus, but unfortunately due to the fibroid, there was very little motion of the uterus. At this point in time, I decided to enucleate the fibroid. An incision was then carried through to the fundus uterus and the fibroid was then bluntly dissected off the uterus. The fibroid was then sent off the surgical field. At this point in time, the uterus had satisfactorily been collapsed and was now mobile. Adequate visualization was now possible. We then proceeded to a normal hysterectomy. The left side of the uterus was first addressed. The incision was then carried inferiorly with the LigaSure that was made after excision of the left adnexa. The broad ligament was then clamped, cauterized, and incised. This incision was carried inferiorly to the uterine arteries, cardinal ligament and uterosacral ligament. An incision was made on top of the parietal peritoneum and bluntly dissected off in order to separate the bladder from the uterus. Next, attention was turned to the right adnexa. The right infundibulopelvic ligament was then clamped, cauterized, and incised. This incision was then carried inferiorly in order to excise the lateral side of the broad ligament and the uterine artery. The bladder flap was then further developed. The cardinal and uterosacral ligaments were clamped, cauterized, and incised with the LigaSure. The bladder flap was further developed. Next, an incision was made in the midline on the issa-inferior portion of the cervix. The incision was carried circumferentially around the cervix until the vagina was . The specimen was then sent off the surgical field. The vaginal cuff was then closed with a running locked stitch of 0 Vicryl. Hemostasis was noted. The abdomen was then copiously irrigated and found to be hemostatically stable. At this point in time, the procedure had been completed. We proceeded to remove all instruments. The low vertical incision was then closed at this point in time. 0 PDS was used to close the fascia. Dr. Anaya closed the superior portion of the incision in order to repair the incisional hernia. Please see his dictation for further details. The Camper's fascia was then reapproximated with single interrupted sutures of 0 Vicryl. The skin was then reapproximated with 4-0 Monocryl in a subcuticular fashion. Finally, a Prevena wound VAC was placed on the incision and turned on. The patient tolerated the procedure well, was taken back to recovery in stable condition. The patient will be given routine care. I will be aggressive in controlling the patient's pain. Her hypertension has been controlled and she is not taking her routine medications. This will be held unless her blood pressure increases. I have texted the patient's to inform him of surgical findings and that the patient is doing well. All sponge, lap and needle counts were correct x2 as per nurse report. 20:9:00 JOB #: [id number] EXT JOB #:[id number] ARON
[2017-04-01] MEDS: ACETAMINOPHEN 500 MG TABLET PO SCH ×3 (05:25→20:52)
[2017-04-01] MEDS: LACTATED RINGERS 1,000 ML IV SCH ×2 (05:40→20:53)
[2017-04-01] MEDS: SODIUM CHLORIDE FLUSH 0.9% 10 ML SYRINGE IVP SCH ×3 (05:40→20:56)
[2017-04-01] MEDS: FAMOTIDINE 20 MG TABLET PO SCH (10:40)
[2017-04-01] MEDS: DOCUSATE SODIUM 100 MG CAPSULE PO SCH ×2 (10:40→20:51)
[2017-04-01] MEDS: LOSARTAN 50 MG TABLET PO SCH (10:40)
[2017-04-01] MEDS: hydroCHLOROthiazide 25 MG TABLET PO SCH (10:40)
[2017-04-01] MEDS: CELECOXIB 100 MG CAPSULE PO SCH ×2 (10:44→20:52)
[2017-04-01] MEDS: POLYETHYLENE GLYCOL 3350 17 GM PACKET PO SCH (10:45)
--- NOTE | 2017-04-01 12:39 | PROVIDER PROGRESS NOTE ---
Subjective - Prog Note Date Prog Note Date: 04/01/17 Prog Note Time: 12:37 - Subjective Pt reports feeling: Improved Subjective: Patient dangling feet over the edge. Per patient request, epidural still in- situ. Swift catheter in-situ as well. Pain satisfactorily controlled. The patient ate breakfast without incident. She has noted that oxycodone makes her pruritic. Vic was here earlier but he has to watch the dogs and he dislikes hospitals. Prevena wound vac working. Objective - Vital Signs/Intake & Output Reviewed Vital Signs: Yes Vital Signs: Vital Signs x48h Temp Pulse Resp BP Pulse Ox 04/01/17 07:44 98.8 F 68 18 124/49 L 97 04/01/17 05:40 98.2 F 75 16 118/68 98 Intake & Output: Intake & Output 03/29/17 03/30/17 03/31/17 04/01/17 23:59 23:59 23:59 23:59 Intake Total 733 1157 Output Total 1150 Balance 733 7 - Objective General Appearance: positive: No acute distress Abdomen: positive: Non-tender (Prevena wound vac in place and working well.) Neurologic/Psychiatric: positive: Oriented x3 - Lab Results Fish Bones: 03/30/17 08:51 04/01/17 06:32 Other Labs: Lab Results x24hrs 04/01/17 03/31/17 03/31/17 Range/Units 06:32 12:38 12:38 Sodium 134 L (135-145) mmol/L Potassium 3.0 L 3.1 L (3.5-5.0) mmol/L Chloride 98 L (101-111) mmol/L Carbon Dioxide 27 (21-32) mmol/L Anion Gap 9.0 (6-13) BUN 12 (6-20) mg/dL Creatinine 0.6 (0.4-1.0) mg/dL Estimated GFR (MDRD) 99 (>89) Glucose 125 H (70-100) mg/dL Calcium 8.7 (8.5-10.3) mg/dL Blood Type AB POSITIVE Antibody Screen NEGATIVE Assessment/Plan - Problem List (1) Fibroid uterus Impression: 71 yo S/p SAGAR, BSO. Normal recovery. Explained to the patient in depth what happened at the time of surgery. A low vertical skin incision was made. The intestinal cyst that was noted on CT turned out to be a torsed ovary. Pathology will give us more information of why she had an enlarged ovary. A SAGAR/BSO was performed and a Prevena wound vac placed. Wound vac instructions were given to the patient. Anticipate using the wound vac for 7 days given the low vertical incision. Will remove the epidural this PM; spoke with Jose Salazar CRNA. Patient to ambulate, and later shower today. Remove swift catheter. Likely home Thursday04/03/2017. Will do a trial of po dilaudid instead of oxycodone. Qualifiers: Uterine leiomyoma location: unspecified location Qualified Code(s): D25.9 - Leiomyoma of uterus, unspecified
[2017-04-01] MEDS: HYDROmorphone 2 MG TABLET PO SCH ×3 (13:12→20:52)
[2017-04-01] MEDS: POTASSIUM CHLOR 10 MEQ/100 ML 10 MEQ/100 ML BAG IV SCH ×2 (13:13→14:16)
[2017-04-01] MEDS: SIMETHICONE CHEW 80 MG TABLET PO PRN (17:25)
[2017-04-01] MEDS ORDERED: PHENobarb/HYOSCY/ATROPINE/SCOP 5 ML SYRINGE PO SCH (17:30)
[2017-04-01] MEDS ORDERED: MAG HYDROX/AL HYDROX/SIMETH 30 ML UDC PO SCH (18:00)
[2017-04-02] MEDS: HYDROmorphone 2 MG TABLET PO SCH ×6 (00:54→21:38)
[2017-04-02] MEDS: ACETAMINOPHEN 500 MG TABLET PO SCH ×3 (04:55→21:39)
[2017-04-02] MEDS: SODIUM CHLORIDE FLUSH 0.9% 10 ML SYRINGE IVP SCH ×3 (05:02→21:39)
[2017-04-02] MEDS: LACTATED RINGERS 1,000 ML IV SCH (06:26)
[2017-04-02] MEDS: SIMETHICONE CHEW 80 MG TABLET PO PRN (06:29)
[2017-04-02] MEDS: DOCUSATE SODIUM 100 MG CAPSULE PO SCH ×2 (08:25→21:39)
[2017-04-02] MEDS: hydroCHLOROthiazide 25 MG TABLET PO SCH (08:25)
[2017-04-02] MEDS: POLYETHYLENE GLYCOL 3350 17 GM PACKET PO SCH (08:25)
[2017-04-02] MEDS: FAMOTIDINE 20 MG TABLET PO SCH (08:25)
[2017-04-02] MEDS: CELECOXIB 100 MG CAPSULE PO SCH ×2 (08:25→21:39)
[2017-04-02] MEDS: LOSARTAN 50 MG TABLET PO SCH (08:25)
--- NOTE | 2017-04-02 08:34 | PROVIDER PROGRESS NOTE ---
Subjective - Prog Note Date Prog Note Date: 04/02/17 Prog Note Time: 08:27 - Subjective Pt reports feeling: Improved (Patient sitting in the recliner. Smiling, eating breakfast. No nausea or vomiting. No fevers or chillls. States gas causing shoulder pain is almost gone. Vic will come this AM since it will be hot this PM. Ambulating and urinating. Notes initiating urination if different. Would like to stay another night.) Current Medications - Current Medications Current Medications: Scheduled Celebrex, dilaudid, colace. Objective - Vital Signs/Intake & Output Reviewed Vital Signs: Yes Vital Signs: Vital Signs x48h Temp Pulse Resp BP Pulse Ox 04/02/17 05:00 97.7 F 64 16 129/66 92 04/02/17 01:00 98.6 F 63 16 145/70 H 92 Intake & Output: Intake & Output 03/30/17 03/31/17 04/01/17 04/02/17 23:59 23:59 23:59 23:59 Intake Total 733 1957 Output Total 1850 400 Balance 733 107 -400 - Objective General Appearance: positive: No acute distress Eyes Bilateral: positive: Normal inspection Abdomen: positive: Non-tender (Wound vac intact and working well. Low vertical incision.) - Lab Results Fish Bones: 03/30/17 08:51 04/02/17 07:04 Other Labs: Lab Results x24hrs 04/02/17 Range/Units 07:04 Potassium 2.8 L (3.5-5.0) mmol/L Assessment/Plan - Problem List (1) Fibroid uterus Impression: 71 yo S/p SAGAR/BSO 04/01/2017 Normal recovery, doing well Continue routine care Pruritis improved with dilaudid as opposed to oxycodone. Qualifiers: Uterine leiomyoma location: unspecified location Qualified Code(s): D25.9 - Leiomyoma of uterus, unspecified (2) Hypokalemia Impression: K decreased from about 3.1 to 2.8 today. Will order another K rider. Recheck K in AM.
[2017-04-02] MEDS ORDERED: POTASSIUM CHLOR 20 MEQ/100 ML 20 MEQ/100 ML BAG IV ONE (08:48)
[2017-04-02] MEDS: POTASSIUM CHLOR 10 MEQ/100 ML 10 MEQ/100 ML BAG IV SCH ×2 (10:24→12:43)
--- NOTE | 2017-04-02 13:52 | DISCHARGE SUMMARY ---
DATE OF ADMISSION: 03/30/2017 DATE OF DISCHARGE: 04/03/2017 DIAGNOSES ON ADMISSION 1. A 71-year-old G4, P3-0-1-3. 2. Abdominal pain. 3. Leiomyomatous uterus. 4. Hypokalemia DIAGNOSES ON DISCHARGE 1. A 71-year-old G4, P3-0-1-3. 2. Status post exploratory laparotomy, total abdominal hysterectomy, bilateral salpingo-oophorectomy on 03/31/2017. 3. Normal recovery. 4. Hypokalemia BRIEF HISTORY: The patient presented to [facility] Emergency Department on 03/30/2017 with complaints of abdominal pain. It started in the left flank and moved to the lower left quadrant. Workup was only significant for a 10 x 6 x 8 cm cystic lesion abutting the proximal sigmoid colon. There was an incidental finding of a leiomyomatous uterus with a fibroid measuring 12.3 cm. I was consulted by Dr. Anaya given the fibroid uterus. Dr. Anaya had planned to proceed with surgery with the patient given the large parasigmoid cyst. After reviewing the information and doing an examination on the patient, I discussed with her my recommendations that at minimum she undergo a total abdominal hysterectomy and bilateral salpingo-oophorectomy. If she were to have a major surgery, I would rather her undergo anesthesia only once in order to have the cyst excised as well as a hysterectomy. Her uterus was beginning to give her problems with respect to emptying her bladder. Furthermore, given the size of the fibroid, it may be degenerating, thus contributing to her abdominal pain. The patient underwent an exploratory laparotomy, total abdominal hysterectomy and bilateral salpingo-oophorectomy on 03/31/2017. The parasigmoid cyst turned out to be a torsed left adnexa. Grossly there were no signs of carcinoma. Surgery went well and there were no complications. EBL was less than 100 mL. She also had repair of her incisional hernia by Dr. Anaya. She was given a Prevena wound VAC, particularly because she had a low midline vertical incision. The patient's recovery has been normal. Her pain is well controlled with the exception of some phrenic nerve irritation on postoperative #1. She is ambulating and tolerating a regular diet. Her pain is controlled with oral medications, and she is urinating without difficulty. She has also been noted to have hypokalemia. The patient has been given several doses of potassium IV and oral. She will need to follow up with her PCP in regards to her hypokalemia. I will anticipate her going home on 04/03/2017. She will be given prescriptions for ibuprofen 800 mg, Tylenol 500 mg as well as dilaudid 2 mg. I would like to see the patient in the [facility] office next week on April 06 for removal of her Prevena wound VAC. I am currently awaiting the results of her pathology. She will also be given instructions to call should she have any worsening fevers, chills, abdominal pain or vaginal bleeding. JOB #: [id number] EXT JOB #:[id number] MTDZina
--- NOTE | 2017-04-02 19:53 | PROVIDER PROGRESS NOTE ---
Subjective - Prog Note Date Prog Note Date: 04/02/17 Prog Note Time: 19:48 - Subjective Pt reports feeling: Improved Subjective: Patient sitting comfortably in her recliner. States pain much better. No nausea or vomiting. Feeling a little loopy on 10 mg of dilaudid. Ambulating and urinating well. Very happy with her care here. Her only complaint is the poor quality of food. No fresh peaches, only canned. Objective - Vital Signs/Intake & Output Vital Signs: Vital Signs x48h Temp Pulse Resp BP Pulse Ox 04/02/17 15:53 98.4 F 69 17 119/60 92 04/02/17 12:58 98.2 F 79 16 119/59 L 95 Intake & Output: Intake & Output 03/30/17 03/31/17 04/01/17 04/02/17 23:59 23:59 23:59 23:59 Intake Total 733 1957 1800 Output Total 1850 1000 Balance 733 107 800 - Lab Results Fish Bones: 03/30/17 08:51 04/02/17 07:04 Other Labs: Lab Results x24hrs 04/02/17 Range/Units 07:04 Potassium 2.8 L (3.5-5.0) mmol/L Assessment/Plan - Problem List (1) Fibroid uterus Impression: 71 yo S/p SAGAR/BSO and incisional hernia repair. Normal recovery Patient to take 1 tablet of dilaudid 5 mg instead of 2. Remove saline lock. Anticipate discharge home tomorrow. Qualifiers: Uterine leiomyoma location: unspecified location Qualified Code(s): D25.9 - Leiomyoma of uterus, unspecified (2) Hypokalemia Impression: Still decreased PO K
[2017-04-03] MEDS: HYDROmorphone 2 MG TABLET PO SCH ×3 (01:48→08:17)
[2017-04-03] MEDS: ACETAMINOPHEN 500 MG TABLET PO SCH (05:03)
[2017-04-03] MEDS: SODIUM CHLORIDE FLUSH 0.9% 10 ML SYRINGE IVP SCH (06:02)
[2017-04-03] MEDS ORDERED: POTASSIUM CHLORIDE 20 MEQ TABLET PO SCH (08:00)
[2017-04-03 08:08] VITALS: BP 148/78
[2017-04-03] MEDS: CELECOXIB 100 MG CAPSULE PO SCH (08:16)
[2017-04-03] MEDS: FAMOTIDINE 20 MG TABLET PO SCH (08:16)
[2017-04-03] MEDS: DOCUSATE SODIUM 100 MG CAPSULE PO SCH (08:16)
[2017-04-03] MEDS: POLYETHYLENE GLYCOL 3350 17 GM PACKET PO SCH (08:17)
[2017-04-03] MEDS: hydroCHLOROthiazide 25 MG TABLET PO SCH (08:17)
[2017-04-03] MEDS: LOSARTAN 50 MG TABLET PO SCH (08:17)
--- NOTE | 2017-04-03 09:10 | PROVIDER PROGRESS NOTE ---
Subjective - Prog Note Date Prog Note Date: 04/03/17 Prog Note Time: 09:08 - Subjective Pt reports feeling: Improved Subjective: Patient ambulating and urinating. Tried to have a BM but unsuccessful. Dilaudid 2 mg 1 tablet better than 2 tablets. Tried to sleep last PM (vitals held during sleep) but nursing staff talking too loudly outside her room. Would like to go home today. No nausea or vomiting. Current Medications - Current Medications Current Medications: Routine dilaudid, Celebrex, tylenol and colace Objective - Vital Signs/Intake & Output Reviewed Vital Signs: Yes Vital Signs: Vital Signs x48h Temp Pulse Resp BP Pulse Ox 04/03/17 08:07 97.9 F 65 16 148/78 H 94 Intake & Output: Intake & Output 03/31/17 04/01/17 04/02/17 04/03/17 23:59 23:59 23:59 23:59 Intake Total 733 1957 1800 500 Output Total 1850 1400 0 Balance 733 107 400 500 - Objective General Appearance: positive: No acute distress Eyes Bilateral: positive: Normal inspection (Wears glasses) Abdomen: positive: Non-tender (Wound vac in place and working well) Neurologic/Psychiatric: positive: Oriented x3 - Lab Results Fish Bones: 03/30/17 08:51 04/02/17 07:04 Assessment/Plan - Problem List (1) Fibroid uterus Impression: 71 yo S/p SAGAR/BSO, incisional hernia repair Normal recovery Discharge to home today after repeat K Follow up with myself on April 06 for removal of Prevena wound vac Home Rx written for colace, tylenol, motrin and dilaudid No lifting > gallon of milk. Call for worsening fevers, chills, abdominal pain or vaginal bleeding Qualifiers: Uterine leiomyoma location: unspecified location Qualified Code(s): D25.9 - Leiomyoma of uterus, unspecified (2) Hypokalemia Impression: Hypokalemia, K 2.8 yesterday Patient received 40 mEQ po after K drawn Repeat K prior to discharge to home Will need to follow up with her PCP as to her hypokalemia Discharge Plan Disposition: Home, Self Care Condition: Good Diet: Regular Activity Restrictions: No lifting >1 gallon milk Shower Restrictions: No (May remove vacuum machine during shower) Driving Restrictions: Yes (No driving) Weight Bearing: Full Weight Instruction Topics: Hydromorphone tablets, Abdominal Pain, ED Fibroids No Smoking: If you smoke, Please STOP! Call for help. Follow-up with: Romy Rosen DO [Provider Admit Priv/Credential] - Sarthak Anaya MD [Provider Admit Priv/Credential] -
== END 2017-04-03 11:01 | disposition home or self-care (01) | DRG 742 ==
LOC: ED 07:54 → MS2 19:17
PROVIDERS: ADMIT Obstetrics & Gynecology; ATTEND Obstetrics & Gynecology
PROC: 0UT90ZZ Resection of Uterus, Open Approach (ICD-10-PCS; principal; 2017-03-30)
PROC: 0UTC0ZZ Resection of Cervix, Open Approach (ICD-10-PCS; 2017-03-30)
PROC: 0UT20ZZ Resection of Bilateral Ovaries, Open Approach (ICD-10-PCS; 2017-03-30)
PROC: 0UT70ZZ Resection of Bilateral Fallopian Tubes, Open Approach (ICD-10-PCS; 2017-03-30)
PROC: 0WQF0ZZ Repair Abdominal Wall, Open Approach (ICD-10-PCS; 2017-03-30)
DX: R10.32 Left lower quadrant pain (principal); D25.9 Leiomyoma of uterus, unspecified; D25.1 Intramural leiomyoma of uterus; K57.90 Diverticulosis of intestine, part unspecified, without perforation or abscess without bleeding; N83.512 Torsion of left ovary and ovarian pedicle; D25.2 Subserosal leiomyoma of uterus; K43.2 Incisional hernia without obstruction or gangrene; N80.0 Endometriosis of uterus; D27.0 Benign neoplasm of right ovary; K57.30 Diverticulosis of large intestine without perforation or abscess without bleeding; E87.6 Hypokalemia; I10 Essential (primary) hypertension; Z79.899 Other long term (current) drug therapy
CPT/HCPCS: 36415; 74176; 80048; 80053; 81001; 81003; 83690; 84132; 84484; 85025; 86850; 86900; 86901; 87086; 93005; 96361; 96374; 96375; 96376; 99284

== ENCOUNTER 2017-04-17 08:00 | Outpatient (CLI) | payer MEDICARE | END 2017-04-17 08:01 | disposition home or self-care (01) | LOC: LAB.R 08:00 | PROVIDERS: ATTEND Registered Nurse | DX: N30.01 Acute cystitis with hematuria (principal) | CPT/HCPCS: 87086 ==

== ENCOUNTER 2021-03-12 11:00 | Outpatient (CLI) | payer MEDICARE ==
[2021-03-12 14:44] LABS: BILIRUBIN,URINE NEGATIVE (NEGATIVE); GLUCOSE, URINE (UA) NEGATIVE (NEGATIVE); KETONES,URINE (UA) NEGATIVE (NEGATIVE); LEUKOCYTE ESTERASE, URINE SMALL (NEGATIVE); NITRITE,URINE NEGATIVE (NEGATIVE); OCCULT BLOOD,URINE LARGE (NEGATIVE); PH,URINE 5.5 PH (5.0-7.5); PROTEIN,URINE 30 mg/dL (NEGATIVE); UROBILINOGEN,URINE 0.2 (NORMAL) E.U./dL (NORMAL)
[2021-03-12 14:45] LABS: CLARITY,URINE CLOUDY (CLEAR)
[2021-03-12 14:49] LABS: AMORPHOUS SEDIMENT,UR Marked /LPF; BACTERIA,URINE Rare /HPF (None Seen); RBC,URINE TNTC /HPF (0-5); SQUAMOUS EPITHELIAL CELL,UR FEW Squamous (<= Few)
[2021-03-12 14:50] LABS: CRYSTALS,URINE 6-10 Calcium Oxalate /LPF
== END 2021-03-12 23:59 | disposition home or self-care (01) ==
LOC: LAB.S 11:00
PROVIDERS: ATTEND Emergency Medicine
DX: R30.0 Dysuria (principal)
CPT/HCPCS: 81001; 87086; 87181

== ENCOUNTER 2022-06-07 08:00 | Outpatient (CLI) | payer MEDICARE ==
[2022-06-07 18:53] LABS: BILIRUBIN,URINE NEGATIVE (NEGATIVE); GLUCOSE, URINE (UA) NEGATIVE (NEGATIVE); KETONES,URINE (UA) TRACE mg/dL (NEGATIVE); LEUKOCYTE ESTERASE, URINE SMALL (NEGATIVE); NITRITE,URINE NEGATIVE (NEGATIVE); OCCULT BLOOD,URINE TRACE-INTA (NEGATIVE); PH,URINE 5.5 PH (5.0-7.5); PROTEIN,URINE NEGATIVE (NEGATIVE); UROBILINOGEN,URINE 0.2 (NORMAL) E.U./dL (NORMAL)
[2022-06-07 19:10] LABS: AMORPHOUS SEDIMENT,UR Marked /LPF; BACTERIA,URINE None Seen /HPF (None Seen); CLARITY,URINE CLOUDY (CLEAR); RBC,URINE 0-5 /HPF (0-5); SQUAMOUS EPITHELIAL CELL,UR NONE SEEN (<= Few)
== END 2022-06-07 23:59 | disposition home or self-care (01) ==
LOC: LAB.N 08:00
PROVIDERS: ATTEND Emergency Medicine
DX: R30.0 Dysuria (principal)
CPT/HCPCS: 81001; 87086

== ENCOUNTER 2022-11-04 07:00 | Outpatient (CLI) | payer MEDICARE ==
[2022-11-04 15:08] LABS: BILIRUBIN,URINE NEGATIVE (NEGATIVE); GLUCOSE, URINE (UA) NEGATIVE (NEGATIVE); KETONES,URINE (UA) NEGATIVE (NEGATIVE); LEUKOCYTE ESTERASE, URINE SMALL (NEGATIVE); NITRITE,URINE NEGATIVE (NEGATIVE); OCCULT BLOOD,URINE LARGE (NEGATIVE); PROTEIN,URINE NEGATIVE (NEGATIVE); UROBILINOGEN,URINE 0.2 (NORMAL) E.U./dL (NORMAL)
[2022-11-04 15:32] LABS: AMORPHOUS SEDIMENT,UR Marked /LPF; BACTERIA,URINE Many /HPF (None Seen); CLARITY,URINE CLOUDY (CLEAR); SQUAMOUS EPITHELIAL CELL,UR RARE Squamous (<= Few)
== END 2022-11-04 23:59 | disposition home or self-care (01) ==
LOC: LAB.S 07:00
PROVIDERS: ATTEND Emergency Medicine
DX: N39.0 Urinary tract infection, site not specified (principal)
CPT/HCPCS: 81001; 87086; 87181